=== PATIENT | male | born 1965 | race Caucasian/White ===

== ENCOUNTER → 2016-07-23 | Day surgery (SDC) | payer OTHER ==
[~2016-07-23] VITALS: Ht 182.9 cm; Wt 83.9 kg
[2016-07-23] VITALS (10 sets, daily range): BP systolic 109–131; BP diastolic 81–96
[~2016-07-23] MED LIST: BENAZEPRIL HCL20 MG ORAL; DiphenhydrAMINE 50mg/ml Inj IVP PRN; LR 1000ml 1,000 ML IVLG SCH; LR 1000ml ONE; Lidocaine 1% MPF 10mg/ml 5ml ONE; Meperidine 25mg/ml Inj IV PRN; Midazolam 2mg/2ml Inj ONE; Propofol 10mg/ml 20ml IV ONE; fentaNYL 100 mcg/2 mL IV ONE
--- NOTE | 2016-07-23 07:04 | Anethesia Preoperative Eval ---
Anesthesia Pre-op PMH/ROS General Date of Evaluation: Jul 23, 2016 Time of Evaluation: 07:00 Anesthesiologist: Dontrell ASA Score: ASA 2 Mallampati Score Class I : Soft palate, uvula, fauces, pillars visible Class II: Soft palate, uvula, fauces visible Class III: Soft palate, base of uvula visible Class IV: Only hard plate visible Mallampati Classification: Class II Surgeon: Ev Diagnosis: Colon CA screening Surgical Procedure: Colonoscopy Anesthesia History: none Family History: no anesthesia problems Allergies: Coded Allergies: NO KNOWN ALLERGIES (Verified Allergy, Unknown, 07/22/16) Past Medical History Cardiovascular: Reports: HTN - mild, Denies: CAD, [place], arrhythmia, other, valve dz Pulmonary: Denies: COPD, [place], asthma, other Gastrointestinal/Genitourinary: Reports: GERD, other - hemorrhoids, Denies: CRI, ESRD Neurologic/Psychiatric: Denies: CVA, TIA, dementia, depression/anxiety, other Endocrine: Denies: DM, hypothyroidism, other, steroids HEENT: Denies: TETLIN (L), [place] (R), cataract (L), cataract (R), glaucoma, other Hematology/Immune: Denies: DVT, anemia, bleeding disorder, other Musculoskeletal/Integumentary: Denies: DDD, DJD, OA, RA, edema, other PMH Narrative: as above PSxH Narrative: dental Sx Anesthesia Pre-op Phys. Exam Physician Exam Last Vital Signs Date Time Temp Pulse Resp B/P Pulse Ox O2 Delivery O2 Flow Rate FiO2 07/23/16 05:59 97.4 78 18 130/96 100 Room Air Constitutional: NAD Neurologic: CN 2-12 intact Cardiovascular: RRR, no M/R/G Respiratory: CTA Gastrointestinal: S/NT/ND Airway Exam Mallampati Score: Class II MO: full Neck: flexible ROM: full Teeth: intact Dentures: no lower, no upper Anesthesia Pre-op A/P Risk Assessment & Plan Assessment: ASA 2 Plan: MAC Status Change Before Surgery: No Pre-Antibiotics Drug: none SAMI MANDUJANO M.D. Jul 23, 2016 07:04
--- NOTE | 2016-07-23 07:13 | Short Stay Surgery H&P ---
History of Present Illness History of Present Illness Chief Complaint see attached HPI Marquise Lackey is a 50 year old male who was admitted on for Colon Screening Patient History Allergies: Coded Allergies: NO KNOWN ALLERGIES (Verified Allergy, Unknown, 07/22/16) PAST MEDICAL HISTORY: Past Surgeries: Social History: Medication History Scheduled Benazepril Hcl* (Benazepril Hcl*), 20 MG ORAL BID, (Reported) Physical Exam Vital Signs Last Vital Signs Date Time Temp Pulse Resp B/P Pulse Ox O2 Delivery O2 Flow Rate FiO2 07/23/16 05:59 97.4 78 18 130/96 100 Room Air Plan Attestation Are the patient's medical conditions optimized for surgery? CLAUDIA CUNNINGHAM Jul 23, 2016 07:13
--- NOTE | 2016-07-23 07:13 | Pre-Procedure Note/Attestation ---
Pre-Procedure Note/Attestation Complete Prior to Procedure Planned Procedure: not applicable Procedure Narrative: colon Indications for Procedure Pre-Operative Diagnosis: screen Attestation I attest that I discussed the nature of the procedure; its benefits; risks and complications; and alternatives (and the risks and benefits of such alternatives ), prior to the procedure, with the patient (or the patient's legal event marketing representative). I attest that, if there was a reasonable possibility of needing a blood transfusion, the patient (or the patient's legal event marketing representative) was given the [facility] standardized written summary, pursuant to the [place] Blood Safety Act ([place] Health and Safety Code # 1645, as amended). I attest that I re-evaluated the patient just prior to the surgery and that there has been no change in the patient's H&P, except as documented below: CLAUDIA CUNNINGHAM Jul 23, 2016 07:13
--- NOTE | 2016-07-23 07:55 | Immediate Post-Op Evaluation ---
Immediate Post-Op Evalulation Immediate Post-Op Evalulation Procedure: Colonoscopy Date of Evaluation: Jul 23, 2016 Time of Evaluation: 07:39 IV Fluids: 400 Blood Products: none Estimated Blood Loss: none Urinary Output: none Blood Pressure Systolic: 116 Blood Pressure Diastolic: 74 Pulse Rate: 72 Respiratory Rate: 20 O2 Sat by Pulse Oximetry: 99 Temperature (Fahrenheit): 97.4 Pain Score (1-10): 1 Nausea: No Vomiting: No Complications none Patient Status: awake, patent, none Hydration Status: adequate SAMI MANDUJANO M.D. Jul 23, 2016 07:55
--- NOTE | 2016-07-23 08:15 | 48 Hour Post Anesthesia Eval ---
Post Anesthesia Evaluation Procedure: Colonoscopy Date of Evaluation: Jul 23, 2016 Time of Evaluation: 08:14 Blood Pressure Systolic: 118 0: 69 Pulse Rate: 72 Respiratory Rate: 20 Temperature (Fahrenheit): 97.4 O2 Sat by Pulse Oximetry: 98 Airway: patent Nausea: No Vomiting: No Pain Intensity: 1 Hydration Status: adequate Cardiopulmonary Status: stable Mental Status/LOC: patient returned to baseline Follow-up Care/Observations: n/a Post-Anesthesia Complications: none Follow-up care needed: ready to discharge SAMI MANDUJANO M.D. Jul 23, 2016 08:15
--- NOTE | 2016-07-23 08:47 | Endoscopy Procedure Note ---
Endoscopy Procedure Note Indication for Procedure: screen Procedures Performed: colonoscopy Operative Findings/Diagnosis: nl Specimen: none Pt Tolerated Procedure Well: Yes Estimated Blood Loss: none Anesthesiologist: see report Anesthesia: MAC Medication Given: see anesthesia record Implant(s) used?: No 50 yrs or older w/o bx or poly: Yes 10yrs. F/U not recommended: Yes If not recommended, why?: 10 yrs. F/U needed: Yes 18 years or older w/prev. colo: Yes <3yrs. since last colonoscopy: No Med reason:<3 yrs.: Last colonoscopy >= to 3yrs: Yes CLAUDIA CUNNINGHAM Jul 23, 2016 08:47
--- NOTE | 2016-07-23 08:48 | Brief Operative Note ---
Immediate Post Operative Note Operative Note Chief Complaint: screen Pre-op Diagnosis: screen Procedure: col Post-op Diagnosis: nl Post-op Diagnosis: same as pre-op Surgeon: bravo Anesthesiologist: see report Anesthesia: MAC Specimen: none Complications: none Condition: stable Estimated Blood Loss: none Drains: none Implant(s) used?: Yes Implant(s) used?: No CLAUDIA CUNNINGHAM Jul 23, 2016 08:48
--- NOTE | 2016-07-24 12:38 | Operative Note - Dictated ---
DATE OF OPERATION: 07/23/2016 GASTROLOGY PROCEDURE REPORT: PROCEDURE: Screening colonoscopy. SURGEON: Bart Berrios M.D. ANESTHESIA: Please see the separate anesthesiologist notes for details. PRE-ENDOSCOPIC DIAGNOSIS: Screening. POST-ENDOSCOPIC DIAGNOSIS: Normal colonoscopy. PROCEDURE: The procedure, its risks, indications, alternatives, and possible complications were explained to the patient and informed consent was obtained. Rectal exam was done, which was normal. The colonoscope was introduced through the rectum and advanced to the cecum. The cecum was identified by the appearance of the ileocecal valve. The colonoscope was gradually withdrawn. The mucosa examined carefully. Examination of colonic mucosa did not reveal any abnormalities. Retroflexed in the rectum was unremarkable. The colonoscope was removed. The patient was sent to recovery in good condition. COMPLICATIONS: None. RECOMMENDATIONS: 1. Resume oral diet. 2. Repeat colonoscopy in 5 to 10 years. Thank you for asking me to participate in the care of this patient. Bart Berrios M.D. DR: TANNER JOB#: [id number] CC:
== END | disposition home or self-care (01) ==
LOC: GAS 05:34
DX: Z12.11 Encounter for screening for malignant neoplasm of colon (principal); K21.9 Gastro-esophageal reflux disease without esophagitis; I10 Essential (primary) hypertension
CPT/HCPCS: 45378; J2250; J2704; J3010; J7120; 94003; 94150

== ENCOUNTER 2017-05-10 05:41 | Day surgery (SDC) | payer OTHER ==
[~2017-05-10] VITALS: Ht 182.9 cm; Wt 83.9 kg
[2017-05-10] VITALS (10 sets, daily range): BP systolic 98–108; BP diastolic 63–74
[~2017-05-10 05:41] MED LIST changes: -DiphenhydrAMINE 50mg/ml Inj IVP PRN; -LR 1000ml 1,000 ML IVLG SCH; -LR 1000ml ONE; -Lidocaine 1% MPF 10mg/ml 5ml ONE; -Meperidine 25mg/ml Inj IV PRN; -Midazolam 2mg/2ml Inj ONE; -Propofol 10mg/ml 20ml IV ONE; -fentaNYL 100 mcg/2 mL IV ONE
[2017-05-10] MEDS ORDERED: Ciprofloxacin Opth Soln 2.5ml ONE (06:22)
[2017-05-10] MEDS ORDERED: Ketorolac Tromethamine Opth 5ml Soln ONE (06:22)
[2017-05-10] MEDS ORDERED: Phenylephrine 2.5% Op 2ml Soln ONE (06:23)
[2017-05-10] MEDS ORDERED: Akten 3.5% 1ml Btl ONE (06:23)
[2017-05-10] MEDS ORDERED: Cyclopentolate 1% Opth Sol 2ml ONE (06:23)
[2017-05-10] MEDS: Ciprofloxacin Opth Soln 2.5ml LEFT EYE SCH ×4 (06:33→06:53)
[2017-05-10] MEDS: Ketorolac Tromethamine Opth 5ml Soln LEFT EYE SCH ×4 (06:33→06:53)
[2017-05-10] MEDS: Cyclopentolate 1% Opth Sol 2ml LEFT EYE SCH ×4 (06:33→06:53)
[2017-05-10] MEDS: Akten 3.5% 1ml Btl LEFT EYE SCH ×4 (06:34→06:53)
[2017-05-10] MEDS: Phenylephrine 2.5% Op 2ml Soln LEFT EYE SCH ×4 (06:35→06:53)
[2017-05-10] MEDS ORDERED: MAGNESIUM500 MG PO (06:39)
[2017-05-10] MEDS ORDERED: POTASSIUM600 MG PO (06:39)
[2017-05-10] MEDS ORDERED: VITAMIN D31000 UNI2 PO (06:39)
[2017-05-10] MEDS ORDERED: BSS 500ml btl ONE (06:50)
[2017-05-10] MEDS ORDERED: Tobradex Opth Oint 3.5gm ONE (06:50)
[2017-05-10] MEDS ORDERED: Diclofenac Sod 0.1% Op Soln ONE (06:51)
[2017-05-10] MEDS ORDERED: Dexamethasone 4mg/ml vial ONE (06:51)
[2017-05-10] MEDS ORDERED: Tetracaine 0.5% Opth 4ml Soln ONE (06:51)
[2017-05-10] MEDS ORDERED: Lidocaine 1% MPF 10mg/ml 5ml ONE (06:51)
[2017-05-10] MEDS ORDERED: Pred Forte 1% Opth Susp 1ml ONE (06:51)
[2017-05-10] MEDS ORDERED: Lidocaine 4% Amp ONE (06:52)
[2017-05-10] MEDS ORDERED: Povidone-Iodine 5% opth solution ONE (06:52)
[2017-05-10] MEDS ORDERED: EPINEPHrine 1mg/1ml Amp ONE (06:52)
[2017-05-10] MEDS ORDERED: Carbachol 0.01% Op Soln 1.5ml vial ONE (06:52)
[2017-05-10] MEDS ORDERED: Sodium Hyaluronate 10 mg/ml 0.85ml ONE (06:53)
[2017-05-10] MEDS ORDERED: Lidocaine 2% 20mg/ml/EPI 0.01mg/ml 20ml ONE (06:53)
[2017-05-10] MEDS ORDERED: Sodium Hyaluronate 14 mg/ml 0.85ml ONE (06:53)
[2017-05-10] MEDS ORDERED: BSS 15ml BTL ONE (06:53)
--- NOTE | 2017-05-10 07:21 | Pre-Procedure Note/Attestation ---
Pre-Procedure Note/Attestation Complete Prior to Procedure Planned Procedure: left Procedure Narrative: Cataract extraction with intraocular lens implant, left eye. Indications for Procedure Pre-Operative Diagnosis: Cataract, left eye Attestation I attest that I discussed the nature of the procedure; its benefits; risks and complications; and alternatives (and the risks and benefits of such alternatives ), prior to the procedure, with the patient (or the patient's legal front desk representative). I attest that, if there was a reasonable possibility of needing a blood transfusion, the patient (or the patient's legal front desk representative) was given the [facility] standardized written summary, pursuant to the [place] Blood Safety Act ([place] Health and Safety Code # 1645, as amended). I attest that I re-evaluated the patient just prior to the surgery and that there has been no change in the patient's H&P, except as documented below: CONSTANCE MORALES May 10, 2017 07:21
[2017-05-10] MEDS ORDERED: LR 1000ml 1,000 ML IVLG SCH (07:24)
--- NOTE | 2017-05-10 07:24 | Anethesia Preoperative Eval ---
Anesthesia Pre-op PMH/ROS General Date of Evaluation: May 10, 2017 Time of Evaluation: 07:22 Anesthesiologist: Dontrell ASA Score: ASA 2 Mallampati Score Class I : Soft palate, uvula, fauces, pillars visible Class II: Soft palate, uvula, fauces visible Class III: Soft palate, base of uvula visible Class IV: Only hard plate visible Mallampati Classification: Class II Surgeon: Radha Diagnosis: L eye cataract Surgical Procedure: L eye cataract extraction Anesthesia History: none Family History: no anesthesia problems Allergies: Coded Allergies: NO KNOWN ALLERGIES (Verified Allergy, Unknown, 05/10/17) Past Medical History Cardiovascular: Reports: HTN, Denies: CAD, [place], valve dz, arrhythmia, other Pulmonary: Denies: asthma, COPD, SOFIYA, other Gastrointestinal/Genitourinary: Reports: GERD - mild, Denies: CRI, ESRD, other Neurologic/Psychiatric: Reports: depression/anxiety, Denies: dementia, CVA, TIA, other Endocrine: Denies: DM, hypothyroidism, steroids, other HEENT: Reports: cataract (L), Denies: cataract (R), glaucoma, [place] (L), [place] (R), other Hematology/Immune: Denies: anemia, DVT, bleeding disorder, other Musculoskeletal/Integumentary: Denies: OA, RA, DJD, DDD, edema, other PMH Narrative: as above PSxH Narrative: none Anesthesia Pre-op Phys. Exam Physician Exam Last Vital Signs Date Time Temp Pulse Resp B/P (MAP) Pulse Ox O2 Delivery O2 Flow Rate FiO2 05/10/17 06:43 98.0 65 19 103/63 96 Room Air Constitutional: NAD Neurologic: CN 2-12 intact Cardiovascular: RRR, no M/R/G Respiratory: CTA Gastrointestinal: S/NT/ND Airway Exam Mallampati Score: Class II MO: full Neck: flexible ROM: full Teeth: intact Dentures: no upper, no lower Anesthesia Pre-op A/P Labs see chart Studies Pre-op Studies: EKG - NSR Risk Assessment & Plan Assessment: ASA 2 Plan: MAC Status Change Before Surgery: No Pre-Antibiotics Drug: none SAMI MANDUJANO M.D. May 10, 2017 07:24
[2017-05-10] MEDS ORDERED: Propofol 200mg/20ml IV ONE (07:30)
[2017-05-10] MEDS ORDERED: NS Irrig 1000ml ONE (07:30)
[2017-05-10] MEDS ORDERED: Meperidine 50mg/ml Inj(FOR RIGORS ONLY) IV PRN (07:30)
[2017-05-10] MEDS ORDERED: fentaNYL 100 mcg/2 mL IV ONE (07:30)
[2017-05-10] MEDS ORDERED: Midazolam 2mg/2ml Inj ONE (07:30)
[2017-05-10] MEDS ORDERED: LR 1000ml ONE (07:30)
[2017-05-10] MEDS ORDERED: Sterile Water Irrig 1000ml IRRIG ONE (07:30)
--- NOTE | 2017-05-10 08:12 | Immediate Post-Op Evaluation ---
Immediate Post-Op Evalulation Immediate Post-Op Evalulation Procedure: L eye cataract extraction with IOL Date of Evaluation: May 10, 2017 Time of Evaluation: 08:11 IV Fluids: 200 Blood Products: none Estimated Blood Loss: none Urinary Output: none Blood Pressure Systolic: 104 Blood Pressure Diastolic: 74 Pulse Rate: 58 Respiratory Rate: 18 O2 Sat by Pulse Oximetry: 99 Temperature (Fahrenheit): 97.8 Pain Score (1-10): 1 Nausea: No Vomiting: No Complications none Patient Status: awake, patent, none Hydration Status: adequate SAMI MANDUJANO M.D. May 10, 2017 08:12
--- NOTE | 2017-05-10 08:18 | Operative Note - PDOC ---
Operative Note Operative Note Date of Operation/Procedure: May 10, 2017 Chief Complaint: Poor vision Pre-op Diagnosis: Cataract, left eye Procedure: Cataract extraction with lens implant Post-op Diagnosis: Cataract Post-op Diagnosis: same as pre-op Surgeon: Constance Morales [employer] Specialist: None Additional Surgeons: Jose Roberto Anesthesiologist: Dontrell Anesthesia: MAC Specimen: none Complications: none Condition: stable Estimated Blood Loss: none Drains: none Implant(s) used?: Yes Indications for Procedure Poor vision Description of Procedure Dictated. CONSTANCE MORALES May 10, 2017 08:18
--- NOTE | 2017-05-10 08:58 | 48 Hour Post Anesthesia Eval ---
Post Anesthesia Evaluation Procedure: L eye cataract extraction with IOL Date of Evaluation: May 10, 2017 Time of Evaluation: 08:57 Blood Pressure Systolic: 108 0: 54 Pulse Rate: 59 Respiratory Rate: 16 Temperature (Fahrenheit): 97.8 O2 Sat by Pulse Oximetry: 99 Airway: patent Nausea: No Vomiting: No Pain Intensity: 1 Hydration Status: adequate Cardiopulmonary Status: stable Mental Status/LOC: patient returned to baseline Follow-up Care/Observations: n/a Post-Anesthesia Complications: none Follow-up care needed: ready to discharge SAMI MANDUJANO M.D. May 10, 2017 08:58
--- NOTE | 2017-05-10 17:00 | Operative Note - Dictated ---
DATE OF OPERATION: 05/10/2017 SURGEON: Dane Garcia M.D. CAR PARKER: None. ANESTHESIA: MAC. ANESTHESIOLOGIST: By Noah Jon M.D. 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 PRINCIPLE PROCEDURE: Phacoemulsification with primary implantation of posterior chamber intraocular lens, left eye. DESCRIPTION OF PROCEDURE: The patient was evaluated in my office complaining of decreasing vision in his left eye. He was found to have a significant nuclear cataract, much worse in the left eye than the right eye. After discussing the risks, benefits, and alternatives, informed consent was obtained to proceed with cataract extraction in the left eye. The patient was therefore brought to the [facility] where the left pupil was dilated and an intravenous line was started. He was brought into the operating room where ocular anesthesia was obtained with topical drops, supplemented with intravenous sedation. The left eye was then prepped and draped in the usual fashion for intraocular surgery. A clear corneal temporal incision was made in the anterior chamber filled with nonpreserved lidocaine and viscoelastic. A continuous tear capsulotomy was accomplished. Hydrodissection was utilized to facilitate phacoemulsification. A two-handed phacoemulsification technique was then used to fracture the lens nucleus into quadrants and the segments removed in sequence. Irrigation/aspiration hand piece was used to remove all residual lens cortex and [place] the posterior capsule. Viscoelastic was introduced. An intraocular lens from [employer], model [id number] with a power of 22.5 diopters, was folded into the lens insertion cartridge, injected into the posterior chamber of the eye and positioned within the capsular bag. The viscoelastic was removed. The wound was adjusted, made watertight without sutures. The intraocular pressure was adjusted to normal. One drop of 10% Betadine, one drop of prednisolone acetate, and one drop of Ciloxan were placed on the eye. The eye was covered with an eye shield. This completed the procedure. All sponge and needle counts were correct. The patient was taken to the [facility] in good condition having tolerated the procedure well. Dane Garcia M.D. DR: MARTY JOB#: [id number] CC: Bart Berrios M.D.; Fax#: [phone]
== END 2017-05-10 09:00 | disposition home or self-care (01) ==
LOC: SUR 05:41
DX: H25.12 Age-related nuclear cataract, left eye (principal); I10 Essential (primary) hypertension; K21.9 Gastro-esophageal reflux disease without esophagitis; F32.9 Major depressive disorder, single episode, unspecified; F41.9 Anxiety disorder, unspecified
CPT/HCPCS: 66984; J0171; J1100; J2250; J2704; J3010; J3370; J7120; V2632; 94003; 94150